=== PATIENT | male | born 1960 | race Caucasian/White ===

== ENCOUNTER 2019-04-29 17:45 | Emergency (ER) | payer MEDICARE ==
[2019-04-29] MEDS ORDERED: IV NORMAL SALINE 1,000ML 1,000 ML IV ONE ×2 (18:00→18:45)
[2019-04-29 18:04] LABS: BASO # 0.1 x10^3/uL (0.0-0.2); BASO % 1 % (0-3); EOS % 0 % (0-3); HEMATOCRIT 35.6 % (39.0-53.0); LYMPH # 0.9 x10^3/uL (1.0-4.8); LYMPH % 11 % (24-48); MEAN CORPUSCULAR HEMOGLOBIN 27 pg (25-35); MEAN CORPUSCULAR HGB CONC 31 g/dL (31-37); MEAN CORPUSCULAR VOLUME 89 fL (79-100); MONO # 0.7 x10^3/uL (0.0-1.1); MONO % 8 % (0-9); NEUT # 6.5 x10^3uL (1.8-7.7); NEUT % 80 % (31-73); PLATELET COUNT 266 x10^3/uL (140-400); RED BLOOD COUNT 4.02 x10^6/uL (4.30-5.70); WHITE BLOOD COUNT 8.2 x10^3/uL (4.0-11.0)
--- NOTE | 2019-04-29 18:05 | PHYS DOC ---
Adult General Chief Complaint Chief Complaint: RESP ARREST HPI HPI 58-year-old male presents via EMS after altered mental status and cardiac arrest. The patient was reported to have altered mental status at home. When the EMS personnel arrived and an O2 monitor, they found the patient to be in V. fib. He was given one shock. He then had pulseless electrical activity. They immediately began CPR. After 4 rounds of CPR, the patient had return of spontaneous circulation. He is not speaking, but he acknowledges that he can hear rest. He does not his head or blink his eyes to command. We are unsure of his baseline his family is not here at this time. On arrival to the emergency room, he did not have IV access. The patient has a tracheotomy at baseline. He had been bagging the patient. Respiratory therapist tells me that the patient appears to be attempting to take breaths, but we are assisting him at this time. The patient is unable to give me any history. This is entirely gleaned from EMS and direct observation. (WILLIAM BOWEN DO) Review of Systems Review of Systems Unable to assess due to patient condition (WILLIAM BOWEN DO) Physical Exam Physical Exam Constitutional: Well developed, morbidly obese well nourished, no acute distress, non-toxic appearance. [] HENT: Normocephalic, atraumatic, bilateral external ears normal, oropharynx moist, no oral exudates, nose normal. [] Eyes: PERRLA, EOMI, conjunctiva normal, no discharge. [] Neck: Normal range of motion, no tenderness, supple, no stridor. Tracheotomy in place [] Cardiovascular:Heart rate regular rhythm, rate 94, no murmur [] Lungs & Thorax: Bilateral breath sounds clear to auscultation. Patient being manually assisted with ventilation [] Abdomen: Bowel sounds normal, soft, no tenderness. Meghan-umbilical hernia easily reducible [] Skin: Warm, dry, no erythema, no rash. [] Back: No tenderness, no CVA tenderness. [] Extremities: No tenderness, no cyanosis, no clubbing, ROM intact, no edema. [] Neurologic: Alert. Blinks and nods to commands [] Psychologic: Unable to assess. [] (WILLIAM BOWEN DO) EKG EKG [] (WILLIAM BOWEN DO) Radiology/Procedures Radiology/Procedures [] (WILLIAM BOWEN DO) Course & Med Decision Making Course & Med Decision Making Pertinent Labs and Imaging studies reviewed. (See chart for details) The patient arrived just prior to shift change. I'm treating the patient over to my colleague Dr. Sanchez. The patient's entire workup is pending. [] (WILLIAM BOWEN DO) Course & Med Decision Making Admitting Diagnosis from recent discahrge summary 04/10 at [facility].Comment: Oropharyngeal cancer, trached, recent reconstructive surgery KU-flap on the left side chest - just this week recent sepsis with HCAP and resp failure - CXR interval stable, off abx atelectasis Hyperkalemia with no EKG changes Penicillin and erythromycin allergy - tolerated cefepime fine at ER Super morbidly obese BMI [address] on [address], incidental weakness and debility, ICU myopathy consuelo i saw pt at 602 pm. bp in 90's at 645 105 systolic improving with fluids inr 3.0 k 7.2 cr 7.4 had a vtach arrest s/p shock and epi downtime about ten minutes or so. lactic acid elevated could be from sepsis, did sepsis fluids ibw due to bmi >30, vanco/cefepime. repeat lactic yaw have to be at [facility] due to need for transfer for specialty care.' lft could be shock liver inr 3 d/w bg. vianey accepts lambert requests 1/4ns at 75 ml/h with 2 amps bicarb. i spoke with phamacist who will put this order in. i paged IR awaiting call back. gave ca gluconate, insulin, glucose, cefepime, ibw fluids, vanco, amiodarone , pt bp 127 at 655 pm. blood gas interp, metabolic acidosis with component of respiratory acidosis but pt is breathing well on his own sat'ing mid 90's on trach collar at 4-5 l. for now will hold off on connecting to vent. trop 0.77 likely from shocks, will trend, ekg does not show stemi, high likelihood situation due to hyperk rather than acs. hold off on asa due to inr [address] scan here weight limit is 450 lbs. prov has higher weight limit scanner for paitnet. no lateralizing neuro findings at this time. cxr interp poor quality film could be pna noted final read, ordered broad spectrum abx. also noted bp dropping temporarily right before ems arrived. we started on low dose levophed bp 114 systolic at 845 pm when ems arrived. i paged IR twice, no response, let marcell davis at [facility] know that dialysis catheter may be needed upon arrival. Critical care time was 60 minutes exclusive of procedures. (ANH SANCHEZ MD) Dragon Disclaimer Dragon Disclaimer This electronic medical record was generated, in whole or in part, using a voice recognition dictation system. (WILLIAM BOWEN DO) Departure Departure: Impression: Primary Impression: Acute renal failure Additional Impressions: Hyperkalemia Cardiac arrest Disposition: XFER SHT-TRM HOSP Condition: GUARDED Referrals: ANJANA CLAUDIO MD (PCP) Sepsis Assessment Date and Time of Assessment Date: Apr 29, 2019 Time: 20:45 (ANH SANCHEZ MD) Vital Signs Vital Signs Vital Signs Date Time Temp Pulse Resp B/P (MAP) Pulse Ox O2 Delivery O2 Flow Rate FiO2 04/29/19 20:36 100 Tracheal Collar 6.0 04/29/19 19:08 94 24 121/86 (98) 04/29/19 17:57 97.8 (ANH SANCHEZ MD) Respirations Respiratory Effort: Normal Respiratory Pattern: Normal (ANH SANCHEZ MD) Cardiovascular Pulse Rhythm: Regular (ANH SANCHEZ MD) Lung Sounds Breath Sounds: Coarse (ANH SANCHEZ MD) Capillary Refill Capillary Refill: Rt Hand < 3 seconds (ANH SANCHEZ MD) Peripheral Pulse Pulse Location: Radial Pulse Assessment Method: Cuff (manual) (ANH SANCHEZ MD) Integumentary Skin: Warm, Dry (improved skin signs after fluids.) Skin Moisture: Dry (ANH SANCHEZ MD) Problem Qualifiers WILLIAM BOWEN DO Apr 29, 2019 18:05 ANH SANCHEZ MD Apr 29, 2019 18:59
[2019-04-29] MEDS ORDERED: IV NORMAL SALINE 250ML 250 ML ONE ×2 (18:08→19:49)
[2019-04-29] MEDS ORDERED: NOREPINEPHRINE BITARTRATE 4 MG/4 ML VIAL. IV ONE ×2 (18:08→19:49)
[2019-04-29] MEDS ORDERED: CEFEPIME HCL 2 GM in IV NORMAL SALINE 100ML 100 ML IV STA (18:11)
[2019-04-29] MEDS ORDERED: VANCOMYCIN PER PHARMACY MC PRN (18:15)
[2019-04-29] MEDS ORDERED: CALCIUM GLUCONATE 1,000 MG/10 ML VIAL IV ONE ×2 (18:15→19:30)
[2019-04-29] MEDS ORDERED: AMIODARONE 150 MG in IV DEXTROSE 5% 100 ML IVP ONE (18:15)
[2019-04-29] MEDS ORDERED: AMIODARONE 900 MG in IV DEXTROSE 5% 500 ML IV ONE (18:15)
[2019-04-29 18:28] LABS: ALBUMIN 2.9 g/dL (3.4-5.0); ALBUMIN/GLOBULIN RATIO 0.7 (1.0-1.7); CALCIUM 8.3 mg/dL (8.5-10.1); CREATININE 7.9 mg/dL (0.7-1.3); GFR 7.1; TOTAL BILIRUBIN 0.7 mg/dL (0.2-1.0)
[2019-04-29] MEDS ORDERED: SODIUM BICARB ADULT 8.4% 50 MEQ/50 ML DISP.SYRIN. IV ONE (18:30)
[2019-04-29] MEDS ORDERED: AMIODARONE 150 MG in IV DEXTROSE 5% 100 ML IV ONE (18:30)
[2019-04-29] MEDS ORDERED: VANCOMYCIN 2 GM in IV NORMAL SALINE 500ML 500 ML IV ONE (18:30)
[2019-04-29] MEDS ORDERED: IV NORMAL SALINE 1,000ML 1,000 ML IV SCH (18:30)
[2019-04-29] MEDS ORDERED: DEXTROSE 50% 25 GM / 50ML DISP.SYRIN. IV ONE (18:30)
[2019-04-29] MEDS ORDERED: ALBUTEROL SULFATE 2.5 MG/3 ML NEBU. CONT NEB ONE (18:30)
[2019-04-29 18:31] LABS: POTASSIUM 7.2 mmol/L (3.5-5.1)
[2019-04-29] MEDS ORDERED: SODIUM BICARBONATE 50 MEQ/50 ML VIAL. ONE (18:32)
[2019-04-29] MEDS ORDERED: INSULIN REGULAR 100 UNIT/ML 3ML VIAL. IV ONE (18:40)
[2019-04-29] MEDS ORDERED: CEFEPIME HCL 2 GM VIAL IV ONE (18:41)
[2019-04-29] MEDS ORDERED: IV NORMAL SALINE 100ML 100 ML ONE (18:42)
[2019-04-29 19:04] LABS: BARBITURATES NEG (NEG); BENZODIAZEPINES NEG (NEG); CANNABINOIDS NEG (NEG); COCAINE NEG (NEG); METHADONE NEG (NEG); OPIATES POS (NEG); PHENCYCLIDINE NEG (NEG)
[2019-04-29 19:10] LABS: BILIRUBIN,URINE NEG (NEG); CLARITY,URINE CLOUDY; COLOR,URINE AMBER; GLUCOSE,URINE NEG (NEG); NITRITE,URINE NEG (NEG); UROBILINOGEN,URINE 0.2 mg/dL (0.2 mg/dL)
--- NOTE | 2019-04-29 19:10 | RAD ---
Chest radiograph 04/29/2019 6:08 PM INDICATION: Cardiac arrest COMPARISON: CT chest 04/12/2019, chest radiograph 04/10/2019 TECHNIQUE: Supine frontal view of the chest is provided. FINDINGS: Evaluation limited by supine technique and patient positioning. Consolidation at the right lung base may be positional versus atelectasis and/or infiltrate. Tracheostomy tube is present. Cardiomegaly. No left pleural effusion. No definite pneumothorax although evaluation is limited by supine technique. IMPRESSION: Limited examination. Possible consolidative changes are noted at the right lung base which may represent small pleural effusion versus atelectasis and/or infiltrate. Electronically signed by: Karla Bazan MD (04/29/2019 7:07 PM) [facility]
[2019-04-29 19:11] LABS: AMORPHOUS SEDIMENT,UR PRESENT /HPF; BACTERIA,URINE 0 /HPF (0-FEW); RBC,URINE OCC /HPF (0-2); SQUAMOUS EPITHELIAL CELL,UR MOD /LPF
[2019-04-29 19:13] LABS: AMPHETAMINE/METHAMPHETAMINE NEG (NEG)
[2019-04-29] MEDS ORDERED: SODIUM CHLORIDE IV SCH (19:30)
[2019-04-29] MEDS ORDERED: STERILE WATER IV SCH (19:30)
[2019-04-29] MEDS ORDERED: SODIUM BICARBONATE IVF IV SCH (19:30)
[2019-04-29 19:38] LABS: BGAS PH 7.12 (7.35-7.46)
[2019-04-29] MEDS ORDERED: NOREPINEPHRINE BITARTRATE 8 MG in IV NORMAL SALINE 250ML 250 ML IV PRN (20:00)
[2019-04-29 20:49] VITALS: BP 94/52
--- NOTE | 2019-04-29 21:11 | EKG ---
[address] [address] Test Date: 2019-04-29 Test Time: 17:57:45 Pat Name: SILVERIO HOOKS Department: Room: Gender: M [employer] Operator: LULA : 1960 Requested By: WILLIAM BOWEN Order Number: [id number] Reading MD: Measurements Intervals [place] Rate: 94 P: [place]: QRS: -12 QRSD: 52 T: 22 QT: 362 QTc: 458 Interpretive Statements ACCELERATED JUNCTIONAL RHYTHM LEFTWARD AXIS LOW VOLTAGE ABNORMAL ECG RI6.01 No previous ECG available for comparison
== END 2019-04-29 21:05 | disposition short-term general hospital (02) ==
LOC: ER 17:45
DX: I46.9 Cardiac arrest, cause unspecified (principal); N17.9 Acute kidney failure, unspecified; E87.6 Hypokalemia; R41.82 Altered mental status, unspecified; E66.01 Morbid (severe) obesity due to excess calories; Z68.45 Body mass index [BMI] 70 or greater, adult
CPT/HCPCS: 36415; 51702; 71045; 80053; 80307; 81001; 82803; 82947; 83605; 84484; 85025; 85610; 87040; 87077; 87205; 93005; 94640; 96361; 96365; 96366; 96367; 96374; 96375; 99291; J0610; J0692; J7613; J7030